=== PATIENT | female | born 1995 | race Caucasian/White ===

== ENCOUNTER → 2018-08-31 | Outpatient (CLI) | payer OTHER ==
[~2018-08-31] MED LIST: HYDR-3713 PO; IBUP-1022 PO; SERT50TA PO; ZOFR8TAB PO
--- NOTE | 2018-08-31 15:42 | REP ---
KUB, ONE VIEW: HISTORY: Abdominal tenderness. A small amount of air is present in small and large intestine. There are no air fluid levels or dilated loops of intestine. There is no pneumoperitoneum. IMPRESSION: Nonspecific bowel gas pattern. Electronically Signed by Hi Henriquez MD 08/31/2018 03:49 P
[2018-08-31 17:52] LABS: CHLAMYDIA DNA AMPLIFICATION NEGATIVE (NEGATIVE); GC DNA AMPLIFICATION NEGATIVE (NEGATIVE)
== END ==
LOC: M WUC 15:02
PROVIDERS: ATTEND Physician Assistant
DX: R30.0 Dysuria (principal)

== ENCOUNTER → 2019-04-10 | Outpatient (REF) | payer OTHER ==
[~2019-04-10] MED LIST changes: +ONDA-227 PO; +SERT-141 PO; -SERT50TA PO; -ZOFR8TAB PO
[2019-04-10 15:11] LABS: CHOLESTEROL RISK RATIO 3.142 (<5)
[2019-04-10 16:06] LABS: HEMOGLOBIN A1c 5.7 %
== END ==
LOC: M SFHCCLAY 08:06
PROVIDERS: ATTEND Family Medicine
DX: Z00.00 Encounter for general adult medical examination without abnormal findings (principal); Z68.41 Body mass index [BMI] 40.0-44.9, adult; Z82.49 Family history of ischemic heart disease and other diseases of the circulatory system; Z13.220 Encounter for screening for lipoid disorders; Z13.1 Encounter for screening for diabetes mellitus

== ENCOUNTER → 2020-01-07 | Outpatient (CLI) | payer OTHER | LOC: M LABSMTC 13:42 | PROVIDERS: ATTEND Family Medicine | DX: Z11.59 Encounter for screening for other viral diseases (principal); Z20.828 Contact with and (suspected) exposure to other viral communicable diseases | CPT/HCPCS: C9803; U0003 ==

== ENCOUNTER → 2020-11-17 | Outpatient (CLI) | payer OTHER ==
--- NOTE | 2020-11-17 18:14 | REP ---
INDICATION: R13.10 DYSPHAGIA. COMPARISON: NONE TECHNIQUE: The procedure was performed under the direct supervision of . The procedure was performed with Magdalena Burnette from speech pathology present. 5 CC aliquots of thin, pudding, mixed fruit, soft and solid consistency barium was administered as well as a barium pill. 0.9 minutes of fluoroscopy time was utilized for this procedure. FINDINGS: There is no evidence of penetration or aspiration. A detailed report of this examination will be provided by speech pathology. IMPRESSION: There is no evidence of penetration or aspiration. A detailed report of this examination will be provided by speech pathology. <Electronically signed by Yaniv Avila > 11/17/20 1722 <Electronically signed by Ashok Yeung > 11/17/20 1818
== END ==
LOC: M ST 14:12
PROVIDERS: ATTEND Family Medicine
DX: R13.10 Dysphagia, unspecified (principal)

== ENCOUNTER → 2021-01-15 | Outpatient (CLI) | payer OTHER ==
[~2021-01-15] MED LIST changes: +E-Z-GAS II EFFERVESCENT PACKET (SODIUM BICARB./CITRIC ACID/SIMETHICONE) As Ordered ONE; +E-Z-HD 98% w/w 340GM SUSP BTL As Ordered ONE; +E-Z-PAQUE 96% w/w SUSP 176GM BTL As Ordered ONE
--- NOTE | 2021-01-15 15:00 | REP ---
INDICATION: DYSPHAGIA. COMPARISON: None TECHNIQUE: This procedure was performed by Mirta Fishman [facility], under the direct supervision of Dr. Yeung. Images were reviewed with Dr. Yeung prior to dictation. Liquid barium and gas producing crystals were given in the erect position, as well as liquid barium in the prone oblique position in order to perform a double contrast esophagram examination. FINDINGS: The healthcare representative film shows no organomegaly or pathological masses. The intestinal gas pattern is unremarkable. The oral and pharyngeal stages of deglutition were unremarkable. Esophageal transport is prompt and efficient and there is no evidence of esophagitis, stricture, or mucosal ring. There is no evidence of a hiatal hernia. There was no gastroesophageal reflux noted . IMPRESSION: Unremarkable esophagram. 0.1 minutes of fluoroscopy time was utilized for this procedure. Some fluoroscopic images are performed with last image hold technology. These images require no additional radiation. <Electronically signed by Mirta Fishman > 01/15/21 1403 <Electronically signed by Ashok Yeung > 01/15/21 [id number]
== END ==
LOC: M RAD 08:09
PROVIDERS: ATTEND Physician Assistant Medical
DX: R13.10 Dysphagia, unspecified (principal)

== ENCOUNTER 2021-02-15 13:39 | Day surgery (SDC) | payer OTHER ==
[~2021-02-15] VITALS: Ht 172.7 cm; Wt 109.8 kg
[~2021-02-15 13:39] MED LIST changes: -E-Z-GAS II EFFERVESCENT PACKET (SODIUM BICARB./CITRIC ACID/SIMETHICONE) As Ordered ONE; -E-Z-HD 98% w/w 340GM SUSP BTL As Ordered ONE; -E-Z-PAQUE 96% w/w SUSP 176GM BTL As Ordered ONE; +LIDOCAINE 2% 100MG/5ML SDV (FOR ANES.) As Ordered ONE; +METH36TA5; +NORE1TAB7; +NS 1,000 ML IV ONE; +fentaNYL 100 MCG/2 ML INJECTION (J3010) As Ordered ONE; +propofoL 200 MG/20 ML VIAL As Ordered ONE
--- NOTE | 2021-02-15 15:08 | ROOR ---
Patient Name: Shari Duong Procedure Date: 02/15/2021 2:41 PM Date of : 1995 Age: 25 Room: [facility] Gender: Female Note Status: Finalized Procedure: Upper GI endoscopy Indications: Dysphagia Providers: Yefri Gorman MD Referring MD: Kathleen ACEVEDO DO Requesting Provider: Medicines: Monitored Anesthesia Care Complications: No immediate complications. Procedure: Pre-Anesthesia Assessment: - Prior to the procedure, a History and Physical was performed, and patient medications and allergies were reviewed. The patient is competent. The risks and benefits of the procedure and the sedation options and risks were discussed with the patient. All questions were answered and informed consent was obtained. Patient identification and proposed procedure were verified by the physician, the nurse and the anesthesiologist in the procedure room. Mental Status Examination: alert and oriented. Airway Examination: normal oropharyngeal airway and neck mobility. Respiratory Examination: clear to auscultation. CV Examination: normal. Prophylactic Antibiotics: The patient does not require prophylactic antibiotics. Prior Anticoagulants: The patient has taken no previous anticoagulant or antiplatelet agents. ASA Grade Assessment: II - A patient with mild systemic disease. After reviewing the risks and benefits, the patient was deemed in satisfactory condition to undergo the procedure. The anesthesia plan was to use monitored anesthesia care (MAC). Immediately prior to administration of medications, the patient was re-assessed for adequacy to receive sedatives. The heart rate, respiratory rate, oxygen saturations, blood pressure, adequacy of pulmonary ventilation, and response to care were monitored throughout the procedure. The physical status of the patient was re-assessed after the procedure. The Endoscope was introduced through the mouth, and advanced to the second part of duodenum. The upper GI endoscopy was accomplished without difficulty. The patient tolerated the procedure well. Findings: The Z-line was regular and was found 37 cm from the incisors. Normal mucosa was found in the middle third of the esophagus and in the lower third of the esophagus. Biopsies were obtained from the proximal and distal esophagus with cold forceps for histology of suspected eosinophilic esophagitis. Verification of patient identification for the specimen was done by the physician and nurse using the patient's name, date and medical record number. Estimated blood loss was minimal. There is no endoscopic evidence of stenosis or stricture in the entire esophagus. Patchy mild inflammation characterized by erosions, friability and granularity was found in the gastric antrum. Biopsies were taken with a cold forceps for Helicobacter pylori testing. The duodenal bulb and second portion of the duodenum were normal. Impression: - Z-line regular, 37 cm from the incisors. - Normal mucosa was found in the middle third of the esophagus and in the lower third of the esophagus. Biopsied. - Gastritis. Biopsied. - Normal duodenal bulb and second portion of the duodenum. Recommendation: - Patient has a contact number available for emergencies. The signs and symptoms of potential delayed complications were discussed with the patient. Return to normal activities tomorrow. Written discharge instructions were provided to the patient. - High fiber diet. - Continue present medications. - Await pathology results. - Telephone GI clinic for pathology results in 2 weeks. - Return to primary care physician. - Follow an antireflux regimen. Procedure Code(s): --- Professional --- 26531, Esophagogastroduodenoscopy, flexible, transoral; with biopsy, single or multiple Diagnosis Code(s): --- Professional --- K29.70, Gastritis, unspecified, without bleeding R13.10, Dysphagia, unspecified CPT copyright 2019 [employer]. All rights reserved. The codes documented in this report are preliminary and upon assistant to the ceo review may be revised to meet current compliance requirements. Yefri Gorman MD Yefri Gorman MD 02/15/2021 3:08:03 PM Electronically signed by Yefri Gorman MD Number of Addenda: 0 Note Initiated On: 02/15/2021 2:41 PM Estimated Blood Loss: Estimated blood loss was minimal.
[2021-02-15 15:09] VITALS: BP 126/79
== END 2021-02-15 15:40 | disposition home or self-care (01) ==
LOC: M OPP 13:39
PROVIDERS: ATTEND Internal Medicine Gastroenterology
DX: K29.70 Gastritis, unspecified, without bleeding (principal); R13.10 Dysphagia, unspecified; Z79.3 Long term (current) use of hormonal contraceptives; Z79.899 Other long term (current) drug therapy; Z88.1 Allergy status to other antibiotic agents
CPT/HCPCS: 43239; 88305; J3010

== ENCOUNTER → 2021-03-18 | Outpatient (REF) | payer OTHER ==
[~2021-03-18] MED LIST changes: -LIDOCAINE 2% 100MG/5ML SDV (FOR ANES.) As Ordered ONE; -NS 1,000 ML IV ONE; -fentaNYL 100 MCG/2 ML INJECTION (J3010) As Ordered ONE; -propofoL 200 MG/20 ML VIAL As Ordered ONE
[2021-03-18 12:47] LABS: HEMOGLOBIN A1c 5.2 %
== END ==
LOC: M SFHCCLAY 07:52
PROVIDERS: ATTEND Family Medicine
DX: R73.03 Prediabetes (principal)

== ENCOUNTER → 2021-06-22 | Outpatient (REF) | payer OTHER | LOC: M LAB REF 16:00 | PROVIDERS: ATTEND Physician Assistant Medical | DX: B96.81 Helicobacter pylori [H. pylori] as the cause of diseases classified elsewhere (principal) ==

== ENCOUNTER 2022-02-21 07:57 | Emergency (ER) | payer OTHER ==
[~2022-02-21] VITALS: Ht 172.7 cm; Wt 105.8 kg
[2022-02-21 10:32] VITALS: BP 138/83
[2022-02-21 10:43] LABS: BASO % 0.3 % (0.0-1.0); EOS # 0.1 10^3/uL (0.0-0.5); EOS % 0.8 % (0.0-3.0); HEMATOCRIT 43.9 % (36.0-47.0); HEMOGLOBIN 14.6 g/dl (12.0-15.5); LYMPH # 2.3 10^3/uL (1.5-5.0); LYMPH % 25.7 % (24.0-44.0); MEAN CORPUSCULAR HEMOGLOBIN 29.2 pg (27.0-33.0); MEAN CORPUSCULAR HGB CONC 33.3 g/dl (32.0-36.5); MEAN CORPUSCULAR VOLUME 87.8 fl (80.0-96.0); MONO # 0.6 10^3/uL (0.0-0.8); MONO % 7.1 % (2.0-8.0); NEUTROPHILS % 65.8 % (36.0-66.0); PLATELET COUNT, AUTOMATED 319 10^3/uL (150-450); WHITE BLOOD COUNT 9.1 10^3/uL (4.0-10.0)
[2022-02-21 11:13] LABS: BLOOD UREA NITROGEN 8 MG/DL (7-18); CALCIUM LEVEL 9.3 MG/DL (8.5-10.1); CARBON DIOXIDE LEVEL 27 MEQ/L (21-32); CHLORIDE LEVEL 109 MEQ/L (98-107); CREATININE FOR GFR 0.65 MG/DL (0.55-1.30); GLOMERULAR FILTRATION RATE > 60.0 (>60); GLUCOSE, FASTING 88 MG/DL (70-100); SODIUM LEVEL 143 MEQ/L (136-145)
== END 2022-02-21 11:52 | disposition home or self-care (01) ==
LOC: M ED 07:57
DX: R07.9 Chest pain, unspecified (principal); F41.9 Anxiety disorder, unspecified; R94.31 Abnormal electrocardiogram [ECG] [EKG]; F32.A Depression, unspecified; F90.9 Attention-deficit hyperactivity disorder, unspecified type; G43.909 Migraine, unspecified, not intractable, without status migrainosus; Z88.1 Allergy status to other antibiotic agents; Z79.899 Other long term (current) drug therapy

== ENCOUNTER → 2022-08-24 | Outpatient (REF) | payer OTHER | LOC: M SFHCDERM 14:42 | PROVIDERS: ATTEND Nurse Practitioner Family | DX: D49.2 Neoplasm of unspecified behavior of bone, soft tissue, and skin (principal) ==

== ENCOUNTER → 2023-02-08 | Outpatient (REF) | payer OTHER ==
[2023-02-08 12:15] LABS: ALBUMIN 4.2 G/DL (3.2-5.2); ALKALINE PHOSPHATASE 77 U/L (46-116); ALT/SGPT 27 U/L (7.0-40); AST/SGOT 18 U/L (<34); BILIRUBIN,TOTAL 0.9 MG/DL (0.3-1.2); BLOOD UREA NITROGEN 12 MG/DL (9-23); CALCIUM LEVEL 9.6 MG/DL (8.5-10.1); CARBON DIOXIDE LEVEL 28 MMOL/L (20-31); CHLORIDE LEVEL 104 MMOL/L (98-107); CHOLESTEROL LEVEL 190 MG/DL (<200); CHOLESTEROL RISK RATIO 3.09 (<5); FOLLICLE STIMULATING HORMONE 3.1 mIU/ML; FREE T4 0.99 NG/DL (0.89-1.76); GLOMERULAR FILTRATION RATE > 60.0 (>60); GLUCOSE, FASTING 98 MG/DL (60-100); HDL CHOLESTEROL 61.4 MG/DL (>40); LDL CHOLESTEROL 113.8 MG/DL (<100); LUTEINIZING HORMONE 1.3 mIU/ML; NON-HDL-C 128.6 MG/DL; POTASSIUM SERUM 4.5 MMOL/L (3.5-5.1); PROLACTIN 12.86 NG/ML; SODIUM LEVEL 138 MMOL/L (136-145); TESTOSTERONE 24 NG/DL (14-76); THYROID STIMULATING HORMONE 1.446 uIU/ML (0.55-4.78); TOTAL PROTEIN 7.5 G/DL (5.7-8.2); TRIGLYCERIDES LEVEL 74 MG/DL (<150)
== END ==
LOC: M SFHCCLAY 08:43
PROVIDERS: ATTEND Nurse Practitioner Family
DX: Z12.4 Encounter for screening for malignant neoplasm of cervix (principal); L68.0 Hirsutism
CPT/HCPCS: 80053; 80061; 82627; 83001; 83002; 83036; 84146; 84403; 84439; 84443; G0123

== ENCOUNTER → 2023-11-23 | Outpatient (REF) | payer OTHER, BC | LOC: M SFHCCLAY 11:09 | PROVIDERS: ATTEND Physician Assistant | DX: R30.0 Dysuria (principal) ==

== ENCOUNTER → 2024-01-01 | Outpatient (CLI) | payer BC, OTHER | LOC: M WHC 08:40 | PROVIDERS: ATTEND Nurse Practitioner Family | DX: N91.2 Amenorrhea, unspecified (principal); N88.8 Other specified noninflammatory disorders of cervix uteri ==

== ENCOUNTER 2024-02-26 20:48 | Emergency (ER) | payer BC ==
[~2024-02-26] VITALS: Ht 172.7 cm; Wt 120.5 kg
[2024-02-27] MEDS ORDERED: LIDOCAINE W/EPINEPHRINE 1% 20ML VIAL SC ONE (00:20)
[2024-02-27] MEDS: BOOSTRIX VACCINE (TETANUS/DIPHTH/ACEL. PERTUSSIS) 0.5ML SYR IM ONE (00:32)
[2024-02-27 01:16] VITALS: BP 146/86; TEMP 98.1; O2SAT 98
[2024-02-27] MEDS ORDERED: BUPR150T12 (12:51)
[2024-02-27] MEDS ORDERED: CIPR-249 PO (16:31)
== END 2024-02-27 01:18 | disposition home or self-care (01) ==
LOC: M ED 20:48
DX: S81.012A Laceration without foreign body, left knee, initial encounter (principal); Y92.831 Amusement park as the place of occurrence of the external cause; Y93.19 Activity, other involving water and watercraft; Y99.9 Unspecified external cause status; Z88.1 Allergy status to other antibiotic agents; Z79.899 Other long term (current) drug therapy; Z23 Encounter for immunization

== ENCOUNTER 2024-02-27 12:46 | Emergency (ER) | payer BC ==
[~2024-02-27] VITALS: Ht 172.7 cm; Wt 119.0 kg
[2024-02-27 12:47] VITALS: BP 140/88; TEMP 98.3; O2SAT 98
[2024-02-27] MEDS ORDERED: BUPR150T12 (12:51)
[2024-02-27] MEDS ORDERED: CIPR-249 PO (16:31)
== END 2024-02-27 16:39 | disposition home or self-care (01) ==
LOC: M ED 12:46
DX: Z48.00 Encounter for change or removal of nonsurgical wound dressing (principal); M79.605 Pain in left leg; F90.9 Attention-deficit hyperactivity disorder, unspecified type; G43.909 Migraine, unspecified, not intractable, without status migrainosus; F41.0 Panic disorder [episodic paroxysmal anxiety]; Z88.8 Allergy status to other drugs, medicaments and biological substances; Z79.899 Other long term (current) drug therapy; Z79.2 Long term (current) use of antibiotics

== ENCOUNTER → 2024-03-22 | Outpatient (REF) | payer BC ==
[~2024-03-22] MED LIST changes: +BUPR150T12; +CIPR-249 PO
== END ==
LOC: M LAB REF 12:27 → EEVIPCON 12:27
PROVIDERS: ATTEND Nurse Practitioner Family
DX: L03.116 Cellulitis of left lower limb (principal)

== ENCOUNTER → 2024-12-26 | Outpatient (CLI) | payer BC ==
[~2024-12-26] MED LIST changes: +METH36TA13; -METH36TA5
== END ==
LOC: M SLEEP HO 11:27
PROVIDERS: ATTEND Nurse Practitioner Family
DX: R06.83 Snoring (principal)